=== PATIENT | female | born 1950 | race Caucasian/White ===

== ENCOUNTER → 2017-04-03 | Outpatient (CLI) | payer OTHER ==
[~2017-04-03] MED LIST: ASPEC81 PO; CALC-388 PO; CLR10 PO; FLUO40CA8 PO; LEVO50TA PO; LISI10TA PO; MAGN250T16 PO; MCRK20 PO; MECL1TAB42 PO; MULT-922 PO; PRLSR20 PO; SIMV20TA5 PO
--- NOTE | 2017-04-03 12:29 | MAMMOGRAPHY REPORT ---
BILATERAL DIGITAL SCREENING MAMMOGRAM WITH CAD: 04/03/2017 CLINICAL HISTORY: Routine screening. Patient has no complaints. TECHNIQUE: Bilateral CC and MLO views were obtained. Current study was also evaluated with a Compute r Aided Detection (CAD) system. COMPARISON: Comparison is made to exams dated: 03/30/2016 mammogram, 01/26/2015 mammogram, 01/24/2014 kathy mogram, 01/23/2013 mammogram, 01/20/2012 mammogram, and 01/18/2011 mammogram - [facility]. BREAST COMPOSITION: There are scattered areas of fibroglandular density in both breasts. FINDINGS: A linear scar marker overlies the right upper outer quadrant. There are a few scattered st able benign round calcifications bilaterally. No suspicious mass, architectural distortion or cluste r of new, suspicious microcalcifications is seen. IMPRESSION: ACR BI-RADS CATEGORY 1: NEGATIVE There is no mammographic evidence of malignancy. A 1 year screening mammogram is recommended. The pa tient will receive written notification of the results. Approximately 10% of breast cancers are not detected with mammography. A negative mammographic report should not delay biopsy if a clinically suggestive mass is present. Marisela Vega M.D. ay/:04/03/2017 10:18:56 [employer] Mill Operator: Nandini Mora, [facility] letter sent: Normal 1/2 BI-RADS Code: ACR BI-RADS Category 1: Negative
== END | disposition home or self-care (01) ==
LOC: C.MAMM 09:09
PROVIDERS: ATTEND Family Medicine
DX: Z12.31 Encounter for screening mammogram for malignant neoplasm of breast (principal)

== ENCOUNTER → 2017-12-06 | Day surgery (SDC) | payer OTHER ==
[2017-11-28 13:08] VITALS: Ht 162.6 cm; Wt 122.7 kg
[~2017-12-06] VITALS: Ht 162.6 cm; Wt 122.7 kg
[~2017-12-06] MED LIST changes: -ASPEC81 PO; -CALC-388 PO; +GABA100C13 PO; +LIDOCAINE HCL 2% 2 ML VIAL (20MG/ML) ONE; +LISI-461 PO; -LISI10TA PO; -MAGN250T16 PO; +MAGN250T3 PO; -MCRK20 PO; -MECL1TAB42 PO; +MELO15TA10 PO; +MIDAZOLAM HCL 1 MG/ML 2ML VIAL ONE; +MULT-506 PO; -MULT-922 PO; +ONDANSETRON INJ 2 MG/ML 2 ML VIAL ONE; +POTA-639 PO; +PROPOFOL IV EMULSION 10 MG/ML 20 ML VIAL IV ONE; +SODIUM CHLORIDE 0.9% 500ML 500 ML IV ONE
--- NOTE | 2017-12-06 09:44 | Endo History and Physical ---
History & Physical Date of Service: Dec 06, 2017. Chief Complaint: iron deficiency anemia Referring Physician: Dr. Freddie Veliz History of Present Illness patient with anemia Past Surgical History Hx Cardiac Surgery: No Hx Internal Defibrillator: No Hx Pacemaker: No Hx Abdominal Surgery: Yes (SHADI) Hx of Implantable Prosthesis: No Hx Post-Op Nausea and Vomiting: Yes Hx Cancer Surgery: No Hx Thoracic Surgery: No Hx Orthopedic: Yes (RT/LEFT RCR, LT KNEE ARTHROSCOPY, LEFT TKA, ORIF LEFT WRIST ) Hx Urinary Tract Surgery: No Family History Colon CA, Polyp Social History Smoking Status: Never Smoker Hx Substance Use: No Hx Alcohol Use: No Allergies Coded Allergies: Hydrocodone (Verified Allergy, Intermediate, JITTERY, 12/06/17) Oxytetracycline (Verified Allergy, Intermediate, RASH, 11/28/17) Polymyxin B (Verified Allergy, Intermediate, RASH, 11/28/17) Current Medications Reported Home Medications Medications Dose Route/Sig Max Daily Dose Days Date Category Claritin (Loratadine) 10 Mg Tab 10 Mg PO QAM 11/28/17 Reported Multivitamin (Multivitamins) Tab 1 Tab PO QAM 11/28/17 Reported Magnesium 250 mg (Magnesium) 1 Tab Tab 1 Tab PO DAILY PRN 11/28/17 Reported Synthroid (Levothyroxine Sodium) 50 Mcg Tab 50 Mcg PO QAM 11/28/17 Reported Klor-Con (Potassium Chloride) 20 Meq Tabcr 20 Meq PO TID 11/28/17 Reported Neurontin (Gabapentin) 100 Mg Cap 2 Cap PO TID 11/28/17 Reported Prozac (Fluoxetine HCl) 40 Mg Cap 40 Mg PO QAM 11/28/17 Reported Zestril (Lisinopril) 10 Mg Tab 10 Mg PO HS 11/28/17 Reported Mobic (Meloxicam) 15 Mg Tab 15 Mg PO QAM 11/28/17 Reported Prilosec (Omeprazole) 20 Mg Capcr 20 Mg PO BID 11/28/17 Reported Zocor (Simvastatin) 20 Mg Tab 20 Mg PO HS 12/07/12 Reported Vital Signs Weight (Kilograms): 122.73 Height (Feet): 5 Height (Inches): 4 Date Time Temp Pulse Resp B/P (MAP) Pulse Ox O2 Delivery O2 Flow Rate FiO2 12/06/17 09:36 36.5 88 20 173/76 (108) 97 Room Air Physical Exam General Appearance: no apparent distress Respiratory/Chest: Auscultation: breath sounds normal Cardiovascular: Heart Auscultation: RRR Abdomen: Inspection & Palpation: soft Liver: non-tender Assessment and Plan stable for EGD
--- NOTE | 2017-12-06 10:09 | Discharge Instructions ---
Endoscopy Patient Instructions Date / Procedure(s) Performed Dec 06, 2017. EGD Allergy Information Coded Allergies: Hydrocodone (Verified Allergy, Intermediate, JITTERY, 12/06/17) Oxytetracycline (Verified Allergy, Intermediate, RASH, 11/28/17) Polymyxin B (Verified Allergy, Intermediate, RASH, 11/28/17) Discharge Date / Findings Dec 06, 2017. small hiatal hernia otherwise normal Provider Instructions Activity Restrictions - No exercising or heavy lifting for 24 hours. - Do not drink alcohol the day of the procedure. - Do not drive a car or operate machinery until the day after the procedure. - Do not make any important decisions or sign important papers in 24 hours after the procedure. Following Day: - Return to full activity which may include returning to work/school. Diet Start your diet with liquids and light foods (jello, soup, juice, toast). Then eat your usual diet if not nauseated. Treatment For Common After Affects For mild abdominal pain, bloating, or excessive gas: - Rest - Eat lightly - Lie on right side Follow-Up Information Follow-up with Dr. Freddie Veliz as scheduled Anesthesia Information What You Should Know You have had a procedure that required some medicine to reduce anxiety and discomfort. This treatment is called moderate sedation. After receiving the treatment, you may be sleepy, but you will be able to breathe on your own. The effects of the treatment may last for several hours. Follow these instructions along with Activity/Diet recommendations noted above: * Do NOT do anything where dizziness or clumsiness would be dangerous. * Rest quietly at home today, then you can be up and about tomorrow. * Have a responsible person stay with you the rest of today. * You may have had an I.V. today. If so, you may take the dressing off later today. Recommendations Call your doctor if: * Trouble breathing * Continuous vomiting for more than 24 hours * Temperature above 101 degrees * Severe abdominal pain or bloating * Pain not relieved by pain medicine ordered * There is increased drainage or redness from any incision * A large amount of rectal bleeding greater than 2-3 tablespoons. (If you had a polyp/s removed or have hemorrhoids, a small amount of blood - from the rectum is to be expected.) * You have any unanswered questions or concerns. IN THE EVENT OF A SERIOUS EMERGENCY, GO TO THE NEAREST EMERGENCY ROOM Your discharge instructions were prepared by provider Simón Diaz. Patient Instructions Signature Page Emma Lopez Patient (or Guardian) Signature/Date: I have read and understand the instructions given to me by my caregivers. Caregiver/RN/Doctor Signature/Date: The above-named patient and/or guardian has received patient instructions on this date. + Original Patient Signature Page (only) stays with chart. Please make copy for patient.
--- NOTE | 2017-12-06 10:12 | GI REPORT ---
Procedure Date: 12/06/2017 9:39 AM Procedure: Upper GI endoscopy Indications: Anemia Medicines: See the Anesthesia note for documentation of the administered medications Complications: No immediate complications. Estimated Blood Loss: Estimated blood loss: none. Procedure: Pre-Anesthesia Assessment: - Prior to the procedure, a History and Physical was performed, and patient medications, allergies and sensitivities were reviewed. The patient's tolerance of previous anesthesia was reviewed. - The risks and benefits of the procedure and the sedation options and risks were discussed with the patient. All questions were answered and informed consent was obtained. - Patient identification and proposed procedure were verified prior to the procedure by the physician and the nurse. The procedure was verified in the pre-procedure area. - Pre-procedure physical examination revealed no contraindications to sedation. - After reviewing the risks and benefits, the patient was deemed in satisfactory condition to undergo the procedure. After obtaining informed consent, the endoscope was passed under direct vision. Throughout the procedure, the patient's blood pressure, pulse, and oxygen saturations were monitored continuously. The scope was introduced through the mouth, and advanced to the third part of duodenum. The upper GI endoscopy was accomplished without difficulty. The patient tolerated the procedure well. Findings: The esophagus was normal. A small hiatal hernia was present. The examined duodenum was normal. The cardia and gastric fundus were normal on retroflexion. Impression: - Normal esophagus. - Small hiatal hernia. - Normal examined duodenum. - No specimens collected. - No bleeding seen. Recommendation: - Discharge patient to home. - Consider checking stool for occult blood and colonoscopy if not already done recently. Simón Diaz M.D. Simón Diaz MD 12/06/2017 10:12:14 AM This report has been signed electronically. Note Initiated On: 12/06/2017 9:39 AM I attest to the content of the Intraoperative Record and orders documented therein, exceptions below
[2017-12-06 10:37] VITALS: BP 160/85; PULSE 65; O2SAT 99
--- NOTE | 2017-12-06 11:07 | Anesthesiology Progress Note ---
Anesthesia Post Op Note Date & Time Dec 06, 2017 at 11:07 Vital Signs Pain Intensity: 0 Vital Signs Past 12 Hours Date Time Temp Pulse Resp B/P (MAP) Pulse Ox O2 Delivery O2 Flow Rate FiO2 12/06/17 10:37 65 20 160/85 (110) 99 Room Air 12/06/17 10:22 73 20 140/70 (93) 98 Room Air 12/06/17 10:07 36.5 88 20 112/63 (79) 95 Room Air 12/06/17 09:36 36.5 88 20 173/76 (108) 97 Room Air Notes Mental Status: alert / awake / arousable, participated in evaluation Pt Amnestic to Procedure: Yes Nausea / Vomiting: adequately controlled Pain: adequately controlled Airway Patency, RR, SpO2: stable & adequate BP & HR: stable & adequate Hydration State: stable & adequate Anesthetic Complications: no major complications apparent
== END | disposition home or self-care (01) ==
LOC: C.GI 09:07
PROVIDERS: ATTEND Internal Medicine Gastroenterology
DX: D50.9 Iron deficiency anemia, unspecified (principal); I10 Essential (primary) hypertension; K44.9 Diaphragmatic hernia without obstruction or gangrene; Z88.5 Allergy status to narcotic agent; Z88.1 Allergy status to other antibiotic agents; Z90.49 Acquired absence of other specified parts of digestive tract; Z96.652 Presence of left artificial knee joint; Z80.0 Family history of malignant neoplasm of digestive organs